=== PATIENT | male | born 1940 | race Caucasian/White ===

== ENCOUNTER 2019-10-18 22:49 | Emergency (ER) | payer MEDICARE ==
[~2019-10-18] VITALS: Ht 177.8 cm; Wt 81.6 kg
[2019-10-18 22:49] VITALS: BP 153/85
--- NOTE | 2019-10-18 22:49 | NUR ---
BIBA TAKEN TO RM #9
--- NOTE | 2019-10-18 22:55 | NUR ---
78 Y/O M BIBA C/O ABD PAIN 04/30 RADIATING TO LOWER BACK X 1999. PT PRESENTS WITH A LT SUPRAPUBIC CATHETER. PER PT, A NEW SUPRAPUBIC CATHETER WAS PLACED 3 WEEKS AGO. URINE CLOUDY. RESPIRATIONS UNLABORED. LUNG SOUNDS CLEAR UPON AUSCULTATION. BED IN LOWEST POSITION, SIDE RAIL UP X1. PMH: HTN, DIABETES, CARDIAC PROBLKEMS, KIDNEY PROBLEMS, STENTS ALLERGIES: ATENOLOL, CARDIZEM, ISORDIL
--- NOTE | 2019-10-18 23:00 | NUR ---
DR. KULKARNI AT BEDSIDE.
--- NOTE | 2019-10-18 23:20 | NUR ---
DR. KULKARNI AT BEDSIDE TO REPLEACE SUPRAPUBIC CATHETER.
[2019-10-19] MEDS ORDERED: HYDROcodone/APAP 5/325 MG 1 TAB TAB PO ONE (00:15)
[2019-10-19 00:48] VITALS: BP 101/42
--- NOTE | 2019-10-19 00:48 | NUR ---
Patient discharged with v/s stable. Written and verbal after care instructions given and explained. Patient verbalized understanding. Wheel Chair Assisted to lobby to wait for cab. All questions addressed prior to discharge. Advised to follow up with PMD.
== END 2019-10-19 00:48 | disposition home or self-care (01) ==
LOC: MED 22:49
DX: T83.098A Other mechanical complication of other urinary catheter, initial encounter (principal); R10.30 Lower abdominal pain, unspecified; E11.9 Type 2 diabetes mellitus without complications; I10 Essential (primary) hypertension; Z98.890 Other specified postprocedural states; Z88.8 Allergy status to other drugs, medicaments and biological substances; Y84.6 Urinary catheterization as the cause of abnormal reaction of the patient, or of later complication, without mention of misadventure at the time of the procedure
CPT/HCPCS: 51702; 93005; 99284

== ENCOUNTER 2021-08-19 02:01 | Emergency (ER) | payer MEDICARE ==
[~2021-08-19] VITALS: Ht 177.8 cm; Wt 81.6 kg
[2021-08-19] MEDS ORDERED: NACL 0.9% 1,000 ML IV SCH (02:10)
[2021-08-19] MEDS ORDERED: MORPHINE SULFATE 2 MG/ML SYR IVP ONE (02:10)
[2021-08-19] MEDS ORDERED: ONDANSETRON 4 MG/2 ML VIAL IVP ONE (02:10)
[2021-08-19 02:12] VITALS: BP 134/72
--- NOTE | 2021-08-19 02:20 | NUR ---
TONY LAMAR TO ER BED 09, VIA CARE
--- NOTE | 2021-08-19 02:59 | NUR ---
PT STATES HE TOOK HIS OWN NITRO. NOT GIVEN BY NURSE
[2021-08-19 03:38] LABS: BASOPHILS # (AUTO) 0.1 K/uL (0.00-0.22); BASOPHILS % (AUTO) 0.6 % (0.0-2.0); EOSINOPHILS % (AUTO) 0.1 % (0.0-4.0); HEMOGLOBIN 12.2 g/dL (12.0-18.0); LYMPHOCYTES # (AUTO) 0.6 K/uL (2.0-11.5); LYMPHOCYTES % (AUTO) 6.2 % (20.5-51.1); MEAN CORPUSCULAR HEMOGLOBIN 28 pg (27-31); MEAN CORPUSCULAR HGB CONC 34 g/dL (33-37); MONOCYTES # (AUTO) 0.7 K/uL (0.8-1.0); MONOCYTES % (AUTO) 7.2 % (1.7-9.3); NEUTROPHILS # (AUTO) 8.9 K/uL (1.8-7.7); PLATELET COUNT (AUTO) 198 K/uL (140-450); RED BLOOD CELL COUNT(AUTO) 4.34 MIL/uL (4.20-6.10); RED CELL DISTRIBUTION WIDTH 15.5 % (11.6-13.7); WHITE BLOOD COUNT (AUTO) 10.3 K/uL (4.8-10.8)
[2021-08-19] MEDS ORDERED: ONDANSETRON 4 MG/2 ML VIAL ONE (03:39)
[2021-08-19] MEDS ORDERED: MORPHINE SULFATE 2 MG/ML SYR ONE (03:39)
--- NOTE | 2021-08-19 03:50 | NUR ---
80 Y/O MALE BIBA FOR RIGHT ABDOMEN AND FLANK PAIN. PATIENT PRESENTS TO ED WITH PAIN, NAUSEA, AND CHRONIC BI;LATERAL LEG NUMBNESSDUE TO INFECTION. PT STATES HE HAS A BILATERAL PEDAL FUNGAL INFECTION. DENIES V/D; SKIN IS PINK/WARM/DRY/TIGHT; AAOX4 WITH UNSTEADY GAIT DUE TO THE PEDAL INFECTION; LUNGS CLEAR BL; HR EVEN AND REGULAR; PT DENIES ANY FEVER, CP, SOB, OR COUGH AT THIS TIME; PATIENT STATES PAIN OF 7/10 AT THIS TIME; VSS; PATIENT POSITIONED FOR COMFORT; HOB ELEVATED; BEDRAILS UP X1; BED DOWN. ER MD MADE AWARE OF PT STATUS. HX: DC, KIDNEY STONES, CARDIAC, UTI, LEG CLOTS, DM2, GOUT, HLD ALL: CARDIZEM, ISODRIL, ATENOLOL MEDS: ALLOPURINOL, PLAVIX, ZEDIA, LOVENOX
[2021-08-19 04:01] LABS: ALBUMIN 3.5 g/dL (3.4-5.0); ANION GAP 14.8 (8-16); ASPARTATE AMINOTRANSFERASE 14 U/L (15-37); CHLORIDE 105 mmol/L (98-107); CREATININE 2.2 mg/dL (0.6-1.3); GLUCOSE 216 mg/dL (74-106); LIPASE 70 U/L (73-393); POTASSIUM 4.8 mmol/L (3.5-5.1); SODIUM SERUM 136 mmol/L (136-145); TOTAL BILIRUBIN 0.3 mg/dL (0.0-1.0); UREA NITROGEN, BLOOD 33 mg/dL (7-18)
[2021-08-19 04:14] LABS: NEUTROPHILS % (AUTO) 85.9 % (42.2-75.2)
--- NOTE | 2021-08-19 04:25 | NUR ---
FRANKY/STACY COLLECTED AND WALKED TO LAB
--- NOTE | 2021-08-19 06:49 | NUR ---
urinary bag emptied- 500cc cloudy yellow urine
[2021-08-19 06:50] LABS: APPEARANCE,URINE CLOUDY (CLEAR); BILIRUBIN,URINE NEGATIVE (NEGATIVE); BLOOD, URINE 3+ (NEGATIVE); COLOR,URINE YELLOW (YELLOW); LEUKOCYTE ESTERASE ,URINE 3+ (NEGATIVE); NITRITE, URINE NEGATIVE (NEGATIVE); UGLUCOSE TRACE (NEGATIVE)
--- NOTE | 2021-08-19 06:58 | NUR ---
PT STATES AFTER HE CAME BACK FROM CT HE BEGAN TO HAVE "REALY BAD CP." PT STATES HE TOOK 3 OF HIS OWN NITRO AND IS NO LONGER HAVING PAIN.
--- NOTE | 2021-08-19 07:22 | NUR ---
REPORT RECEIVED FROM BRENDEN MCKINLEY FOR CONTINUITY OF CARE. PT IS A&0X3. IV SITE R HAND 24G, INTACT, PATENT, GOOD BLOOD RETURN, SALINE LOCKED. SUPRAPUBIC CATHETER NOTED. SKIN WARM AND DRY. SAFETY PRECAUTIONS IN PLACE. WILL CONTINUE TO MONITOR.
--- NOTE | 2021-08-19 07:24 | NUR ---
TRANSFER OF CARE REPORT GIVEN TO SKY MCKINLEY
[2021-08-19 07:29] LABS: WBC,URINE TOO MANY TO COUNT /HPF (0-5)
[2021-08-19] MEDS ORDERED: cefTRIAXone 1,000 MG VIAL ONE (09:17)
[2021-08-19] MEDS ORDERED: NITROGLYCERIN 0.4 MG TAB SL ONE ×3 (09:20→15:30)
[2021-08-19] MEDS ORDERED: ASPIRIN 325 MG TAB PO ONE (09:30)
--- NOTE | 2021-08-19 09:30 | NUR ---
pt c/o 8/10 chest pain, ermd made aware
[2021-08-19 11:36] LABS: APPEARANCE,URINE HAZY (CLEAR); BILIRUBIN,URINE NEGATIVE (NEGATIVE); BLOOD, URINE 3+ (NEGATIVE); COLOR,URINE ORANGE (YELLOW); LEUKOCYTE ESTERASE ,URINE 3+ (NEGATIVE); NITRITE, URINE NEGATIVE (NEGATIVE); UGLUCOSE NEGATIVE (NEGATIVE)
--- NOTE | 2021-08-19 12:16 | NUR ---
Julius chavis in [facility] - 08/19/21 at 1216 by [email or web address] PT ARMIN SAUER MADE AWARE
--- NOTE | 2021-08-19 12:16 | NUR ---
PT REFUSED STRAIGHT CATHETER, ERMD MADE AWARE
[2021-08-19 13:01] LABS: RBC,URINE 80-100 /HPF (0-5); WBC,URINE 60-80 /HPF (0-5)
[2021-08-19] MEDS ORDERED: FLUCONAZOLE 100 MG TAB PO ONE (13:10)
[2021-08-19] MEDS ORDERED: CRUSHER, PILL MC ONE (13:29)
--- NOTE | 2021-08-19 15:04 | NUR ---
RECEIVED CALL FROM [employer] WORKER TANYA FROM [place]. STATED PT WILL BE GOING TO [facility] [address], ACCEPTING DR DOUGLAS ROSADO. NUMBER TO GIVE REPORT IS [phone] EXT [phone]. [facility] ETA IS 30 MIN.
--- NOTE | 2021-08-19 15:04 | NUR ---
Note mayankone in [facility] - 08/19/21 at 1517 by [email or web address] RECEIVED CALL FROM MANAGER PACKAGE TANYA FROM [place]. STATED PT WILL BE GOING TO [facility] [address], ACCEPTING DR DOUGLAS ROSADO. NUMBER TO GIVE REPORT IS [phone] [phone]. [facility] ETA IS 30 MIN.
--- NOTE | 2021-08-19 15:17 | NUR ---
Patient to be transferred to [facility] [place]. Is being transferred due to HIGHER LEVEL OF CARE. Receiving facility has accepting physician and available space. ER physician has signed transfer form. Patient or responsible constitution party has agreed to transfer and signed form. Patient belongings inventoried and will be sent with patient. Copy of nursing notes, lab reports, EKG, Physicians Orders and X-rays to be sent with patient. Report called to [facility] MCKINLEY at receiving facility. [facility] ambulance service has been called for transfer. ETA is 30 MIN.
--- NOTE | 2021-08-19 15:30 | NUR ---
PT C/O 8 CHEST PAIN. GAVE NITRO SL PER DR LEIJA
--- NOTE | 2021-08-19 15:43 | NUR ---
[facility] AT BEDSIDE
[2021-08-19 15:47] VITALS: BP 127/97
--- NOTE | 2021-08-19 15:47 | NUR ---
PT TRANSFERRED TO [facility]
== END 2021-08-19 15:46 | disposition short-term general hospital (02) ==
LOC: MED 02:01
DX: A41.9 Sepsis, unspecified organism (principal); Z20.822 Contact with and (suspected) exposure to COVID-19; N39.0 Urinary tract infection, site not specified; N20.0 Calculus of kidney; E11.9 Type 2 diabetes mellitus without complications; I10 Essential (primary) hypertension; Z88.1 Allergy status to other antibiotic agents; Z88.8 Allergy status to other drugs, medicaments and biological substances
CPT/HCPCS: 36415; 71045; 74176; 80053; 81001; 83605; 83690; 84484; 85025; 87086; 87426; 93005; 96361; 96365; 96375; 99285; J0696; J2270; J2405; Q0092